=== PATIENT | female | born 1990 | race Caucasian/White ===

== ENCOUNTER 2016-10-10 09:31 | Outpatient (CLI) | payer BC ==
--- NOTE | 2016-10-10 22:20 | ULT ---
GALLBLADDER ULTRASOUND 10/10/16 Ultrasonography of the right upper quadrant was performed for evaluation of abdominal pain. Comparison is made with a 09/24/16 CT scan. The liver is slightly generous in size, measuring 16 cm in oblique sagittal dimension. Internally, h owever, it appears normal. There is normal echotexture, no sign of mass and no evidence of dilated i ntrahepatic ducts. The gallbladder showed no stones or wall thickening. The gallbladder size was a little generous at 7 .4 cm in length. A few echoes seen in the gallbladder appear to be reverberation artifact. The commo n bile duct was mildly generous in width at 7 mm. No abnormalities around the pancreatic head were s een to suggest mechanical obstruction. A review of the September CT scan showed this area to be clear as well. Portal venous flow was measured and was toward the liver as expected. The right kidney appears normal and was 10.4 cm in length. The pancreas was unremarkable in appearan ce. There is no sign of dilation of the aorta. IMPRESSION: 1. Borderline hepatic size. Liver appears normal. 2. No gallstones or wall thickening. Gallbladder size is slightly generous. 3. Borderline size of the common bile duct (7 mm), but no obvious obstructive lesions or dilate d intrahepatic ducts. POS: HOME
== END 2016-10-10 09:32 | disposition home or self-care (01) ==
LOC: BURULT 09:31
PROVIDERS: ATTEND Specialist
DX: R10.9 Unspecified abdominal pain (principal)
CPT/HCPCS: 76705

== ENCOUNTER 2016-10-13 14:06 | Emergency (ER) | payer BC ==
[2016-10-13 14:43] LABS: #Eosinphils 0.1 thou/uL (0.0-0.7); #Lymphocytes 0.7 thou/uL (1.20-3.40); #Monocytes 0.5 thou/uL (0.11-0.59); #Neutrophils 5.2 thou/uL (1.40-6.50); %Basophils 0.7 % (0.0-1.0); %Eosinophils 1.1 % (0.0-10.0); %Monocytes 7.9 % (0.0-10.0); Hematocrit 40.5 % (36.0-47.0); Mean Platelet Volume 9.3 fL (7.4-10.4); Red Blood Cell (RBC) Count 4.57 mill/uL (4.20-5.40); White Blood Cell (WBC) Count 6.5 thou/uL (4.8-10.8)
[2016-10-13 15:00] LABS: ALT (SGPT) 17 U/L (0-55); AST (SGOT) 22 U/L (5-34); Alkaline Phosphatase 61 U/L (40-150); Anion Gap 14 mmol/L (10-20); BUN (Urea Nitrogen) 15 mg/dL (7.0-18.7); Bilirubin, Total 1.3 mg/dL (0.2-1.2); Calc. Creatinine Clearance 0 mL/min (70-130); Calcium 8.9 mg/dL (7.8-10.44); Carbon Dioxide 25 mmol/L (22-29); Chloride 102 mmol/L (98-107); Estimated GFR-MDRD Greater than 90; Globulin 2.9 g/dL (2.4-3.5); Protein, Total 7.1 g/dL (6.0-8.3)
[2016-10-13 15:13] LABS: Bilirubin Negative (Negative); Blood, Urine Negative (Negative); Glucose, Urine (Dipstick) Negative (Negative); Ketone, Urine Trace mg/dL (Negative); Nitrite Negative (Negative); Protein, Urine (Dipstick) Negative (Neg-Trace); RBC/HPF 0-3 HPF (0-3)
[2016-10-13 15:14] LABS: Bacteria/HPF None Seen HPF (None Seen); WBC/HPF 0-3 HPF (0-3)
[2016-10-13] MEDS ORDERED: Prochlorperazine 10 MG/2 ML VIAL ONE ×2 (15:50→15:53)
--- NOTE | 2016-10-13 16:28 | ERRECORD ---
[facility] EMERGENCY RECORD HPI NAUSEA/VOMITING/DIARRHEA (14:27 WMEI) CHIEF COMPLAINT: Patient presents for evaluation of nausea, Patient presents for evaluation of vomiting, dry heaves. HISTORIAN: History provided by patient, NO DIARRHEA POST OP UMBILICAL HERNIA REPAIR X 2 DAYS FELT BAD/DIZZY AFTER TAKING TRAMADOL THIS AM VOMITED STILL NAUSEATED DIZZY. LOCATION FEMALE: Symptoms are localized, most severe periumbilical. TIME COURSE: Gradual onset of symptoms, 6, hours prior to arrival. ASSOCIATED WITH FEMALE: No associated chills, No associated diarrhea, No associated fever, Associated with nausea, Associated with vomiting. EXACERBATED BY: Patient's condition exacerbated by nothing. RELIEVED BY: Patient's condition relieved by nothing. ROS (14:29 WMEI) CONSTITUTIONAL: Historian reports fatigue, denies fever, reports malaise. DIZZY. EYES: Historian denies eye pain, denies eye discharge. ENT: Historian denies otalgia, denies rhinorrhea, denies sore throat. CARDIOVASCULAR: Historian denies chest pain, no radiation. RESPIRATORY: Historian denies cough, denies shortness of breath. GI: Historian reports abdominal pain, denies diarrhea, reports nausea, reports vomiting. ABOUT SURGICAL SITE. GENITOURINARY FEMALE: Historian denies dysuria, denies frequency. MUSCULOSKELETAL: Historian denies joint redness, denies joint swelling. SKIN: Historian denies skin changes, denies skin lesions. NEUROLOGIC: Historian reports dizziness, denies gait changes, denies headache. PSYCHIATRIC: Historian denies alcohol abuse, denies anxiety, denies depression. PAST MEDICAL HISTORY (14:18 HASA) MEDICAL HISTORY: Flu vaccine not up to date, Tetanus not up to date, Pneumococcal vaccine not up to date, Past medical history includes gastrointestinal disease, hernia, X3 YEARS. Verified on 10/13/16. FEMALE SURGICAL HISTORY: Surgical history of umbilical hernia repair on 10/11/16. Verified on 10/13/16. PSYCHIATRIC HISTORY: No previous psychiatric history. Verified on 10/13/16. SOCIAL HISTORY: Patient drinks socially, once a month, Alcohol history notes: BEER, WINE, Patient denies drug use, Patient has no smoking history, Lives at home, with family. Verified on 10/13/16. FAMILY HISTORY: No known family hisotry. &a-1R&a+25V*p+0X*[id number]*c202B*c15G*c2P*p-0X&a-25V&a+1R Name: Shelby Copeland : 1990 F26 MedRec: [id number] AcctNum: [id number] Prepared: SunOct 13, 2016 22:42 by Interface Page 1 of 3 pMD [facility] EMERGENCY RECORD KNOWN ALLERGIES No Known Allergies CURRENT MEDICATIONS (14:20 HASA) traMADol: TABLET : Strength - 50 mg : ORAL Patient Dose: 50 mg Oral every 4 hours prn. Zofran ODT: TABLET,DISINTEGRATING : Strength - 4 mg : ORAL Patient Dose: 4 mg Sublingual every 4 hours prn. VITAL SIGNS VITAL SIGNS: BP: 123/83, Pulse: 80, Resp: 18 (Non-Labored), Temp: 97.5 (Oral), Pain: 10, O2 sat: 99 on Room Air, Time: 10/13/2016 14:16. (14:16 HASA) BP: 115/79, Pulse: 79, O2 sat: 100 on Room Air, Time: 10/13/2016 14:34. (14:34 HASA) Pulse: 72, Resp: 16, O2 sat: 98 on Room Air, Time: 10/13/2016 15:15. (15:15 HASA) BP: 105/70, Pulse: 76, Resp: 18, O2 sat: 97 on Room Air, Time: 10/13/2016 16:00. (16:00 HASA) Temp: 98.2 (Oral), Time: 10/13/2016 16:15. (16:15 LGIB) PHYSICAL EXAM (14:31 WMEI) CONSTITUTIONAL: Vital signs reviewed, Pulse normal. HEAD: Head exam included findings of head atraumatic, normocephalic. EYES: Extraocular muscles intact, Conjunctiva normal, Sclera normal. ENT: Ear exam normal, Nose exam normal, Pharynx exam normal. NECK: Neck exam included findings of normal range of motion, Trachea midline. RESPIRATORY CHEST: Breath sounds clear, Chest exam included findings of chest movement symmetrical. CARDIOVASCULAR: Cardiovascular exam included findings of heart rate regular rate and rhythm, Heart sounds normal. ABDOMEN FEMALE: Abdominal exam included findings of abdomen tender, to the epigastric region, periumbilical, Bowel sounds, hypoactive, no distension, HEAWLING PERIUMBILICAL SURGICAL SITE. BACK: no tenderness, no costovertebral angle tenderness. UPPER EXTREMITY: Upper extremity exam included findings of inspection normal, Range of motion normal, Motor strength normal. LOWER EXTREMITY: Lower extremity exam included findings of inspection normal, Range of motion normal, Motor strength normal. NEURO: Blanquita coma scale 15, Neuro exam findings include patient oriented to person, place and time, Speech normal, Gait normal. SKIN: Skin exam included findings of skin warm, dry, and normal in color. &a-1R&a+25V*p+0X*q3138R*c202B*c15G*c2P*p-0X&a-25V&a+1R Name: Shelby Copeland : 1990 F26 MedRec: [id number] AcctNum: [id number] Prepared: SunOct 13, 2016 22:42 by Interface Page 2 of 3 pMD [facility] EMERGENCY RECORD LYMPHATIC: Lymphatic exam normal. PSYCHIATRIC: Psychiatric exam included findings of patient oriented to person place and time, Normal affect, Judgment normal, Insight normal. MEDICATION ADMINISTRATION SUMMARY Drug Name: *Compazine injection, Dose Ordered: 5 mg, Route: IV Push, Status: Given, Time: 15:58 10/13/2016, Drug Name: Compazine injection, Dose Ordered: 5 mg, Route: IV Push, Status: Given, Time: 14:59 10/13/2016, Drug Name: *sodium chloride 0.9 % intravenous, Dose Ordered: 1 L, Route: IV Fluid Infusion, Status: Given, Time: 14:53 10/13/2016, *Additional information available in notes, Detailed record available in Medication Service section. PROBLEM LIST No recorded problems DIAGNOSIS (16:11 WMEI) FINAL: PRIMARY: Nausea with vomiting. PRESCRIPTION No recorded prescriptions DISPOSITION PATIENT: Disposition Type: Discharge, Disposition: *Discharge Home. (16:11 WMEI) Patient left the department. (16:20 LGIB) [place]: HASA=NICHO Goyal, Lorenza LGIB=NICHO Landaverde, Jaclyn WMEI=DO Alfonso William &a-1R&a+25V*p+0X*[id number]*c202B*c15G*c2P*p-0X&a-25V&a+1R Name: CopelandShelby Carrie : 1990 F26 MedRec: [id number] AcctNum: [id number] Prepared: SunOct 13, 2016 22:42 by Interface Page 3 of 3 pMD MTDD
--- NOTE | 2016-10-13 16:35 | PICIS ---
[facility] EMERGENCY RECORD TRIAGE (SunOct 13, 2016 14:13 HASA) TRIAGE NOTES: N/V started @ noon. Took tramadol @ 0800. Chills. Body aches. Umbilical hernia repair on 10/11. (SunOct 13, 2016 14:13 HASA) PATIENT: NAME: Shelby Copeland, AGE: 26, GENDER: female, : Sun1990, TIME OF GREET: SunOct 13, 2016 14:07, PREFERRED LANGUAGE: German, ETHNICITY: Not or , ECODE BILLING MAP: [facility], SSN: [id number], Zip Code: [address], KG WEIGHT: 63.50, PHONE: , , , PERSON ID: [id number], PAYMENT: [address], PCP: CRISTINE Duff Kimberly. (SunOct 13, 2016 14:13 HASA) COMPLAINT: Post-op Abdominal Pain. (14:22 HASA) ADMISSION: URGENCY: 3 Urgent, ADMISSION SOURCE: Home, TRANSPORT: Walk-in, BED: ER -04. (SunOct 13, 2016 14:13 HASA) SIRS SCORING: Heart Rate 55-109 (0), Temp range 96.8-101.1 (0), respiratory rate 12-24 (0), Latest WBC 3-14.9 (0), Mental Status altered: no (0), Infection or Suspected Infection: No. (14:18 HASA) TRIAGE SCREENING: Patient denies suicidal ideation, Patient denies presence of domestic violence. (14:18 HASA) TREATMENTS IN PROGRESS: Treatments given Prehospital: Tramadol, zofran. (14:18 HASA) PROVIDERS: TRIAGE NURSE: Lorenza Goyal RN. (SunOct 13, 2016 14:13 HASA) PREVIOUS VISIT ALLERGIES: No Known Allergies. (SunOct 13, 2016 14:13 HASA) No Known Allergies. (14:18 HASA) KNOWN ALLERGIES No Known Allergies CURRENT MEDICATIONS (14:20 HASA) traMADol: TABLET : Strength - 50 mg : ORAL Patient Dose: 50 mg Oral every 4 hours prn. Zofran ODT: TABLET,DISINTEGRATING : Strength - 4 mg : ORAL Patient Dose: 4 mg Sublingual every 4 hours prn. VITAL SIGNS VITAL SIGNS: BP: 123/83, Pulse: 80, Resp: 18 (Non-Labored), Temp: 97.5 (Oral), Pain: 10, O2 sat: 99 on Room Air, Time: 10/13/2016 14:16. (14:16 HASA) BP: 115/79, Pulse: 79, O2 sat: 100 on Room Air, Time: 10/13/2016 14:34. (14:34 HASA) Pulse: 72, Resp: 16, O2 sat: 98 on Room Air, Time: 10/13/2016 15:15. (15:15 HASA) BP: 105/70, Pulse: 76, Resp: 18, O2 sat: 97 on Room Air, Time: 10/13/2016 16:00. (16:00 HASA) Temp: 98.2 (Oral), Time: 10/13/2016 16:15. (16:15 LGIB) &a-1R&a+25V*p+0X*y2272O*c202B*c15G*c2P*p-0X&a-25V&a+1R Name: Shelby Copeland : 1990 F26 MedRec: [id number] AcctNum: [id number] Prepared: SunOct 13, 2016 22:48 by Interface Page 1 of 8 pMD [facility] EMERGENCY RECORD NURSING ASSESSMENT: ABDOMEN (14:25 HASA) CONSTITUTIONAL: Patient arrives ambulatory, Gait steady, History obtained from patient, Patient appears, in distress due to pain, uncomfortable, Patient cooperative, Patient alert, Oriented to person, place and time, Skin warm, Skin dry, Skin normal in color, Mucous membranes pink, Mucous membranes moist, Patient is well-groomed, Patient complains of Post-op Abdominal Pain, Patient arrives to the ED complaining of abdominal pain after umbilical hernia repair on 10/11/16. Reports N/V after taking 50mg of tramadol this AM. Reports dizziness, weakness, and chills. Reports pain as 10 out of 10. PAIN: periumbilical, Onset of pain 10/13/2016 12:00, constant, on a scale 0-10 patient rates pain as 10. ABDOMEN: Abdomen assessment findings include abdomen symmetrical, Abdomen soft, tender, periumbilical, Bowel sounds, hypoactive, Associated with nausea, Associated with vomiting, history of vomiting, no associated diarrhea. SAFETY: Side rails up, Cart/Stretcher in lowest position, Family at bedside, Call light within reach, Hospital ID band on. NURSING PROCEDURE: DISCHARGE NOTE (16:19 LGIB) DISCHARGE: Patient discharged to home, ambulating without assistance, family driving, accompanied by //partner, Summary of Care printed/ provided, Patient requested and was provided an electronic copy of Discharge Instructions, Discharge instructions given to patient, Simple or moderate discharge teaching performed, Above person(s) verbalized understanding of discharge instructions and follow-up care, Patient treated and evaluated by physician. BELONGINGS: Belongings and valuables with patient at time of discharge include:, Belongings remain with patient, Valuables remain with patient. NURSING PROCEDURE: IV PATIENT IDENITIFIER: Patient actively involved in identification process, Patient's identity verified by patient stating name, Patient's identity verified by patient stating date. (14:35 HASA) IV SITE 1: IV therapy indicated for hydration, IV therapy indicated for medication administration, IV established, to the left antecubital, using a 20 gauge catheter, in one attempt, Saline lock established, Flushed with normal saline (mls): 10, Labs drawn at time of placement, labeled in the presence of the patient and sent to lab. (14:35 HASA) FOLLOW-UP SITE 1: After procedure, sterile transparent dressing applied, After procedure, no drainage at IV site, After procedure, no swelling at IV site, After procedure, no redness at IV site. (14:35 HASA) After procedure, 2x2 dressing applied, After procedure, no drainage at IV &a-1R&a+25V*p+0X*o4770K*c202B*c15G*c2P*p-0X&a-25V&a+1R Name: Shelby Copeland : 1990 F26 MedRec: [id number] AcctNum: [id number] Prepared: SunOct 13, 2016 22:48 by Interface Page 2 of 8 pMD [facility] EMERGENCY RECORD site, After procedure, no swelling at IV site, After procedure, no redness at IV site, IV discontinued, due to patient being discharged, catheter intact. (16:18 HASA) SAFETY: Side rails up, Cart/Stretcher in lowest position, Family at bedside, Call light within reach, Hospital ID band on. (14:35 HASA) NURSING PROCEDURE: NURSE NOTES NURSES NOTES: Notes: Patient resting in bed. IV fluids infusing. Lights off per patient request. Awaiting radiology results. NAD. (15:20 HASA) Notes: Patient provided warm blanket per request. IV fluids infusing. NAD. (15:59 HASA) NURSING PROCEDURE: TRANSPORT TO TESTS PATIENT IDENTIFIER: Patient actively involved in identification process, Patient's identity verified by patient stating name, Patient's identity verified by patient stating date. (14:35 HASA) TRANSPORT TO TESTS: Transport indicated to facilitate diagnosis, Patient transported to CT scan, via cart, Accompanied by x-ray heating and cooling technician. (14:35 HASA) FOLLOW-UP: After procedure, patient returned to emergency department. (14:45 HASA) SAFETY: Side rails up, Cart/Stretcher in lowest position, Family at bedside, Call light within reach, Hospital ID band on. (14:35 HASA) NURSING PROCEDURE: URINE COLLECTION (14:55 HASA) PATIENT IDENTIFIER: Patient actively involved in identification process, Patient's identity verified by patient stating name, Patient's identity verified by patient stating date. URINE COLLECTION FEMALE: Urine collected by void, output amount (mL) 75, urine yellow in color, and cloudy, Specimen labeled in the presence of the patient and sent to lab, Specimen obtained for culture labeled in the presence of the patient and sent to lab. SAFETY: Side rails up, Cart/Stretcher in lowest position, Family at bedside, Call light within reach, Hospital ID band on. ORDER DETAILS Order Name: CBC with Differential, Status: Active, Time: 14:24 10/13/2016, User: TEENA, - Ordered for: DO Alfonso William, - Entered by: DO Alfonso William - SunOct 13, 2016 14:24, - Quantity: 1, Order Name: Comprehensive Metabolic Panel, Status: Active, Time: 14:24 10/13/2016, User: TEENA, - Ordered for: DO Alfonso William, &a-1R&a+25V*p+0X*p2628P*c202B*c15G*c2P*p-0X&a-25V&a+1R Name: Shelby Copeland : 1990 F26 MedRec: [id number] AcctNum: [id number] Prepared: SunOct 13, 2016 22:48 by Interface Page 3 of 8 pMD [facility] EMERGENCY RECORD - Entered by: DO Alfonso William - SunOct 13, 2016 14:24, - Quantity: 1, Order Name: SALINE LOCK, Status: Done, Time: 14:34 10/13/2016, User: ZULLY, - Ordered for: DO Alfonso William, - Entered by: DO Alfonso William - SunOct 13, 2016 14:24, - Quantity: 1, Order Name: Urinalysis with Microscopic, Status: Active, Time: 14:24 10/13/2016, User: TEENA, - Ordered for: DO Alfonso William, - Entered by: DO Alfonso William - SunOct 13, 2016 14:24, - Quantity: 1, Order Name: XR Abdomen 1 View, Status: Active, Time: 14:25 10/13/2016, User: TEENA, - Ordered for: DO Alfonso William, - Entered by: DO Alfonso William - SunOct 13, 2016 14:25, - Quantity: 1. MEDICATION ADMINISTRATION SUMMARY Drug Name: *Compazine injection, Dose Ordered: 5 mg, Route: IV Push, Status: Given, Time: 15:58 10/13/2016, Drug Name: Compazine injection, Dose Ordered: 5 mg, Route: IV Push, Status: Given, Time: 14:59 10/13/2016, Drug Name: *sodium chloride 0.9 % intravenous, Dose Ordered: 1 L, Route: IV Fluid Infusion, Status: Given, Time: 14:53 10/13/2016, *Additional information available in notes, Detailed record available in Medication Service section. MEDICATION SERVICE Compazine injection: Order: Compazine injection (prochlorperazine edisylate) - Dose: 5 mg : IV Push Schedule: Now Ordered by: Johnnie Alfonso DO Entered by: Johnnie Alfonso DO SunOct 13, 2016 14:26 , Acknowledged by: Lorenza Goyal RN SunOct 13, 2016 14:34 Documented as given by: Lorenza Goyal RN SunOct 13, 2016 14:59 Patient, Medication, Dose, Route and Time verified prior to administration. Amount given: 5 MG, IV SITE #1 IVP, subsequent different medication, Slowly, Catheter placement confirmed via flush prior to administration, IV site without signs or symptoms of infiltration during medication administration, No swelling during administration, No drainage during administration, IV flushed after administration, Correct patient, time, route, dose and medication confirmed prior to administration, Patient advised of actions and side-effects prior to administration, Allergies confirmed and medications reviewed prior to administration, Patient in position of comfort, Side rails up, Cart in lowest position, Family at bedside. Compazine injection: Order: Compazine injection &a-1R&a+25V*p+0X*c9241N*c202B*c15G*c2P*p-0X&a-25V&a+1R Name: MinShelby Carrie : 1990 F26 MedRec: [id number] AcctNum: [id number] Prepared: SunOct 13, 2016 22:48 by Interface Page 4 of 8 pMD [facility] EMERGENCY RECORD (prochlorperazine edisylate) - Dose: 5 mg : IV Push Schedule: Now Notes: Read back and verified, Verbal Order Ordered by: Johnnie Alfonso DO Entered by: Lorenza Goyal RN SunOct 13, 2016 15:58 , Acknowledged by: Lorenza Goyal RN SunOct 13, 2016 15:58 Documented as given by: Lorenza Goyal RN SunOct 13, 2016 15:58 Patient, Medication, Dose, Route and Time verified prior to administration. Amount given: 5 MG, IV SITE #1 IVP, subsequent different medication, Slowly, Catheter placement confirmed via flush prior to administration, IV site without signs or symptoms of infiltration during medication administration, No swelling during administration, No drainage during administration, IV flushed after administration, Correct patient, time, route, dose and medication confirmed prior to administration, Patient advised of actions and side-effects prior to administration, Allergies confirmed and medications reviewed prior to administration, Patient in position of comfort, Side rails up, Cart in lowest position, Family at bedside. sodium chloride 0.9 % intravenous: Order: sodium chloride 0.9 % intravenous (0.9 % sodium chloride) - Dose: 1 L : IV Fluid Infusion Notes: (Bolus) Ordered by: Johnnie Alfonso DO Entered by: Johnnie Alfonso DO SunOct 13, 2016 14:25 , Acknowledged by: Lorenza Goyal RN SunOct 13, 2016 14:34 Documented as given by: Lorenza Goyal RN SunOct 13, 2016 14:53 Patient, Medication, Dose, Route and Time verified prior to administration. Amount given: 1 L, IV SITE #1 IV fluids established for hydration, IV SITE #1 into left antecubital, IV SITE #1 1st bag hung, amount 1 Liter hung, IV SITE #1 bolus of 1000 ml established, via primary tubing, Catheter placement confirmed via flush prior to administration, IV site without signs or symptoms of infiltration during medication administration, No swelling during administration, No drainage during administration, IV flushed after administration, Correct patient, time, route, dose and medication confirmed prior to administration, Patient advised of actions and side-effects prior to administration, Allergies confirmed and medications reviewed prior to administration, Patient in position of comfort, Side rails up, Cart in lowest position, Family at bedside. : Follow Up : Response assessment performed, No signs or symptoms of allergic reaction noted, _IV SITE #1:_, IV fluid infusion discontinued, on SunOct 13, 2016 16:00, Total fluid hydration time IV site 1 1 hour, 10 minutes, ., Total amount infused: 1 LITER. (16:00 LGIB) HPI NAUSEA/VOMITING/DIARRHEA (14:27 WMEI) CHIEF COMPLAINT: Patient presents for evaluation of nausea, Patient presents for evaluation of vomiting, &a-1R&a+25V*p+0X*v9298Y*c202B*c15G*c2P*p-0X&a-25V&a+1R Name: Shelby Copeland : 1990 F26 MedRec: [id number] AcctNum: [id number] Prepared: SunOct 13, 2016 22:48 by Interface Page 5 of 8 pMD [facility] EMERGENCY RECORD dry heaves. HISTORIAN: History provided by patient, NO DIARRHEA POST OP UMBILICAL HERNIA REPAIR X 2 DAYS FELT BAD/DIZZY AFTER TAKING TRAMADOL THIS AM VOMITED STILL NAUSEATED DIZZY. LOCATION FEMALE: Symptoms are localized, most severe periumbilical. TIME COURSE: Gradual onset of symptoms, 6, hours prior to arrival. ASSOCIATED WITH FEMALE: No associated chills, No associated diarrhea, No associated fever, Associated with nausea, Associated with vomiting. EXACERBATED BY: Patient's condition exacerbated by nothing. RELIEVED BY: Patient's condition relieved by nothing. ROS (14:29 WMEI) CONSTITUTIONAL: Historian reports fatigue, denies fever, reports malaise. DIZZY. EYES: Historian denies eye pain, denies eye discharge. ENT: Historian denies otalgia, denies rhinorrhea, denies sore throat. CARDIOVASCULAR: Historian denies chest pain, no radiation. RESPIRATORY: Historian denies cough, denies shortness of breath. GI: Historian reports abdominal pain, denies diarrhea, reports nausea, reports vomiting. ABOUT SURGICAL SITE. GENITOURINARY FEMALE: Historian denies dysuria, denies frequency. MUSCULOSKELETAL: Historian denies joint redness, denies joint swelling. SKIN: Historian denies skin changes, denies skin lesions. NEUROLOGIC: Historian reports dizziness, denies gait changes, denies headache. PSYCHIATRIC: Historian denies alcohol abuse, denies anxiety, denies depression. PAST MEDICAL HISTORY (14:18 HASA) MEDICAL HISTORY: Flu vaccine not up to date, Tetanus not up to date, Pneumococcal vaccine not up to date, Past medical history includes gastrointestinal disease, hernia, X3 YEARS. Verified on 10/13/16. FEMALE SURGICAL HISTORY: Surgical history of umbilical hernia repair on 10/11/16. Verified on 10/13/16. PSYCHIATRIC HISTORY: No previous psychiatric history. Verified on 10/13/16. SOCIAL HISTORY: Patient drinks socially, once a month, Alcohol history notes: BEER, WINE, Patient denies drug use, Patient has no smoking history, Lives at home, with family. Verified on 10/13/16. FAMILY HISTORY: No known family hisotry. PHYSICAL EXAM (14:31 WMEI) CONSTITUTIONAL: Vital signs reviewed, Pulse normal. HEAD: Head exam included findings of head atraumatic, &a-1R&a+25V*p+0X*z7348E*c202B*c15G*c2P*p-0X&a-25V&a+1R Name: Shelby Copeland : 1990 F26 MedRec: [id number] AcctNum: [id number] Prepared: SunOct 13, 2016 22:48 by Interface Page 6 of 8 pMD [facility] EMERGENCY RECORD normocephalic. EYES: Extraocular muscles intact, Conjunctiva normal, Sclera normal. ENT: Ear exam normal, Nose exam normal, Pharynx exam normal. NECK: Neck exam included findings of normal range of motion, Trachea midline. RESPIRATORY CHEST: Breath sounds clear, Chest exam included findings of chest movement symmetrical. CARDIOVASCULAR: Cardiovascular exam included findings of heart rate regular rate and rhythm, Heart sounds normal. ABDOMEN FEMALE: Abdominal exam included findings of abdomen tender, to the epigastric region, periumbilical, Bowel sounds, hypoactive, no distension, HEAWLING PERIUMBILICAL SURGICAL SITE. BACK: no tenderness, no costovertebral angle tenderness. UPPER EXTREMITY: Upper extremity exam included findings of inspection normal, Range of motion normal, Motor strength normal. LOWER EXTREMITY: Lower extremity exam included findings of inspection normal, Range of motion normal, Motor strength normal. NEURO: Blanquita coma scale 15, Neuro exam findings include patient oriented to person, place and time, Speech normal, Gait normal. SKIN: Skin exam included findings of skin warm, dry, and normal in color. LYMPHATIC: Lymphatic exam normal. PSYCHIATRIC: Psychiatric exam included findings of patient oriented to person place and time, Normal affect, Judgment normal, Insight normal. EVENTS TRANSFER: Triage to Emergency Emergency Room -04. (SunOct 13, 2016 14:13 HASA) Removed from Emergency Emergency Room -04. (16:20 LGIB) PROBLEM LIST No recorded problems DIAGNOSIS (16:11 WMEI) FINAL: PRIMARY: Nausea with vomiting. DISPOSITION PATIENT: Disposition Type: Discharge, Disposition: *Discharge Home. (16:11 WMEI) Patient left the department. (16:20 LGIB) INSTRUCTION (16:11 WMEI) DISCHARGE: NAUSEA VOMITING CHILD 26YR. FOLLOWUP: CRISTINE Duff Kimberly, [facility], [address] [place] [id number], . SPECIAL: Follow-up with your primary physician as needed. &a-1R&a+25V*p+0X*h3477Y*c202B*c15G*c2P*p-0X&a-25V&a+1R Name: Shelby Copeland : 1990 6 MedRec: [id number] AcctNum: [id number] Prepared: SunOct 13, 2016 22:48 by Interface Page 7 of 8 pMD [facility] EMERGENCY RECORD PRESCRIPTION No recorded prescriptions IMAGING (16:23 LGIB) *DISCHARGE INSTRUCTIONS RECEIPT: Image captured from scanner. *SUPPLY CHARGE SHEET: Image captured from scanner. ADMIN (22:36 WMEI) DIGITAL SIGNATURE: DO Alfonso William. Leggett: HASA=NICHO Goyal, Lorenza LGIB=NICHO Landaverde, Jaclyn WMEI=DO Alfonso William &a-1R&a+25V*p+0X*y2401B*c202B*c15G*c2P*p-0X&a-25V&a+1R Name: Copeland Shelby K : 1990 F26 MedRec: [id number] AcctNum: [id number] Prepared: SunOct 13, 2016 22:48 by Interface Page 8 of 8 pMD MTDD
--- NOTE | 2016-10-13 17:32 | RAD ---
ABDOMEN ONE VIEW: Date: 10-13-16 FINDINGS: The bowel gas pattern is normal with no distended loops to suggest obstruction. There is a moderat e amount of fecal material in the colon, however. Gas is noted in the stomach. No pathologic calci fications were seen. The bones and soft tissues were unremarkable. IMPRESSION: At most, mild constipation. POS: HOME
== END 2016-10-13 16:16 | disposition home or self-care (01) ==
LOC: BURERS 14:06
DX: R11.2 Nausea with vomiting, unspecified (principal); G89.18 Other acute postprocedural pain; R10.33 Periumbilical pain; Z79.899 Other long term (current) drug therapy
CPT/HCPCS: 74000; 80053; 81001; 85025; 96361; 96374; 96376; J0780

== ENCOUNTER 2016-10-16 16:21 | Outpatient (CLI) | payer BC ==
[2016-10-16 17:45] LABS: ALT (SGPT) 19 U/L (0-55); AST (SGOT) 18 U/L (5-34); Alkaline Phosphatase 70 U/L (40-150); Anion Gap 13 mmol/L (10-20); BUN (Urea Nitrogen) 8 mg/dL (7.0-18.7); Bilirubin, Total 1.8 mg/dL (0.2-1.2); Calc. Creatinine Clearance 0 mL/min (70-130); Calcium 10.2 mg/dL (7.8-10.44); Carbon Dioxide 25 mmol/L (22-29); Chloride 104 mmol/L (98-107); Estimated GFR-MDRD Greater than 90; Globulin 2.9 g/dL (2.4-3.5); Protein, Total 7.7 g/dL (6.0-8.3)
[2016-10-16 18:15] LABS: #Eosinphils 0.1 thou/uL (0.0-0.7); #Lymphocytes 1.6 thou/uL (1.20-3.40); #Monocytes 0.6 thou/uL (0.11-0.59); #Neutrophils 4.9 thou/uL (1.40-6.50); %Basophils 0.6 % (0.0-1.0); %Eosinophils 1.1 % (0.0-10.0); Hematocrit 42.7 % (36.0-47.0); Mean Platelet Volume 8.8 fL (7.4-10.4); Red Blood Cell (RBC) Count 4.85 mill/uL (4.20-5.40); White Blood Cell (WBC) Count 7.1 thou/uL (4.8-10.8)
== END 2016-10-16 16:22 | disposition home or self-care (01) ==
LOC: HPCALD 16:21
PROVIDERS: ATTEND Physician Assistant
DX: R50.9 Fever, unspecified (principal); R10.9 Unspecified abdominal pain
CPT/HCPCS: 36415; 80053; 84443; 85025

== ENCOUNTER 2016-10-18 14:10 | Outpatient (CLI) | payer BC ==
[2016-10-18 15:36] LABS: Bilirubin, Direct 0.5 mg/dL (0.1-0.3); Bilirubin, Total 1.7 mg/dL (0.2-1.2)
== END 2016-10-18 14:11 | disposition home or self-care (01) ==
LOC: HPCALD 14:10
PROVIDERS: ATTEND Physician Assistant
DX: R17 Unspecified jaundice (principal)
CPT/HCPCS: 36415; 80074; 82150; 82247; 82248; 82390; 82525; 83690

== ENCOUNTER 2017-01-13 18:51 | Emergency (ER) | payer BC ==
--- NOTE | 2017-01-13 20:25 | RAD ---
RIGHT ANKLE THREE VIEWS: 01/13/17 No fracture, dislocation, or joint space abnormality was seen. IMPRESSION: No acute findings. POS: HOME
--- NOTE | 2017-01-13 20:35 | RAD ---
RIGHT FOOT THREE VIEWS 01/13/17 No fracture, dislocation, or acute bony change was seen. There is a tiny metallic speck on the plant ar aspect of the soft tissues below the calcaneus. While it could be a film artifact, I believe I ca n see it on other views suggesting that it could be a tiny opaque foreign body, not necessarily rece nt. IMPRESSION: 1. No acute bony findings. 2. Question of tiny metallic foreign body in the soft tissues of the heel. POS: HOME
== END 2017-01-13 20:30 | disposition home or self-care (01) ==
LOC: BURERS 18:51
DX: S90.31XA Contusion of right foot, initial encounter (principal); F41.9 Anxiety disorder, unspecified; F32.9 Major depressive disorder, single episode, unspecified; X58.XXXA Exposure to other specified factors, initial encounter

== ENCOUNTER 2018-02-04 09:20 | Emergency (ER) | payer BC, MEDICAID ==
[2018-02-04] MEDS ORDERED: Ondansetron HCl/PF 4 MG/2 ML Vial ONE (09:42)
[2018-02-04 10:07] LABS: #Basophils 0.1 thou/uL (0.0-0.2); #Eosinphils 0.2 thou/uL (0.0-0.7); #Lymphocytes 1.3 thou/uL (1.20-3.40); #Monocytes 0.4 thou/uL (0.11-0.59); #Neutrophils 4.8 thou/uL (1.40-6.50); %Basophils 0.8 % (0.0-1.0); %Eosinophils 2.7 % (0.0-10.0); %Lymphocytes 18.9 % (21.0-51.0); %Monocytes 6.3 % (0.0-10.0); %Neutrophils 71.3 % (42.0-75.0); Hemoglobin 14.5 g/dL (12.0-16.0); Mean Corpuscular HGB CONC 34.4 g/dL (32.0-36.0); Mean Corpuscular Hemoglobin 29.5 pg (27.0-31.0); Mean Corpuscular Volume 85.7 fl (81.0-99.0); Mean Platelet Volume 9.7 fL (7.4-10.4); Platelet Count 148 thou/uL (130-400); Red Blood Cell (RBC) Count 4.93 mill/uL (4.20-5.40); White Blood Cell (WBC) Count 6.8 thou/uL (4.8-10.8)
[2018-02-04 10:10] LABS: ALT (SGPT) 19 U/L (8-55); AST (SGOT) 17 U/L (5-34); Albumin 4.5 g/dL (3.5-5.0); Alkaline Phosphatase 63 U/L (40-150); Anion Gap 13 mmol/L (10-20); BUN (Urea Nitrogen) 10 mg/dL (7.0-18.7); Bilirubin, Total 1.3 mg/dL (0.2-1.2); Calc. Creatinine Clearance 0 mL/min (70-130); Calcium 9.5 mg/dL (7.8-10.44); Carbon Dioxide 24 mmol/L (22-29); Chloride 103 mmol/L (98-107); Estimated GFR-MDRD Greater than 90; Globulin 3.1 g/dL (2.4-3.5); Glucose 84 mg/dL (70-105); Lipase 15 U/L (8-78); Potassium 3.8 mmol/L (3.5-5.1); Protein, Total 7.6 g/dL (6.0-8.3); Sodium 136 mmol/L (136-145)
[2018-02-04 10:21] LABS: Bilirubin Negative (Negative); Blood, Urine Negative (Negative); Clarity Slightly Cloudy (Clear); Glucose, Urine (Dipstick) Negative (Negative); Leukocyte Moderate (Negative); Nitrite Negative (Negative); Protein, Urine (Dipstick) 30 mg/dL (Neg-Trace); Specific Gravity, Urine 1.015 (1.005-1.030); Urobilinogen 0.2 mg/dL (0.2-1.0); pH, Urine 8.5 (5.0-9.0)
[2018-02-04 10:32] LABS: RBC/HPF None Seen HPF (0-3); WBC/HPF 0-3 HPF (0-3); Yeast-All Forms 1+ HPF (None Seen)
[2018-02-04 10:33] LABS: Crystals/HPF 2+ AMORPH PHOS HPF (Negative)
[2018-02-04 10:34] LABS: Bacteria/HPF 1+ HPF (None Seen)
== END 2018-02-04 10:48 | disposition home or self-care (01) ==
LOC: BURERS 09:20
DX: O21.0 Mild hyperemesis gravidarum (principal); O99.341 Other mental disorders complicating pregnancy, first trimester; F41.9 Anxiety disorder, unspecified; F32.9 Major depressive disorder, single episode, unspecified; Z3A.08 8 weeks gestation of pregnancy
CPT/HCPCS: 80053; 81003; 81015; 83690; 84702; 85025; 87086; 96361; 96374; J2405

== ENCOUNTER 2018-02-09 09:23 | Emergency (ER) | payer MEDICAID ==
[2018-02-09] MEDS ORDERED: Ondansetron ODT 4 MG TAB ONE (09:50)
== END 2018-02-09 10:16 | disposition home or self-care (01) ==
LOC: BURERS 09:23
DX: O21.9 Vomiting of pregnancy, unspecified (principal); O99.341 Other mental disorders complicating pregnancy, first trimester; F41.9 Anxiety disorder, unspecified; F32.9 Major depressive disorder, single episode, unspecified; Z3A.12 12 weeks gestation of pregnancy
CPT/HCPCS: 99283; Q0162